=== PATIENT | female | born 1995 | race Caucasian/White ===

== ENCOUNTER 2017-03-25 22:15 | Emergency (ER) | payer OTHER ==
[2017-03-25 23:52] LABS: KETONE, URINE AUTO RFX NEGATIVE (NEGATIVE); LEUKOCYTE ESTERASE UR AUTO RFX NEGATIVE (NEGATIVE); MUCUS, URINE RFX SMALL (NEGATIVE); NITRITE, URINE AUTO RFX NEGATIVE (NEGATIVE); RBC, URINE AUTO RFX 2 /HPF (0-3); SPECIFIC GRAVITY UR AUTO RFX 1.023 (1.002-1.035); SQUAM EPITHELIAL CELL UR AURFX 1 /HPF (0-6); WBC, URINE AUTO RFX 1 /HPF (0-3)
[2017-03-26] MEDS: NORCO 5/325MG TABLET (BULK FOR ED) PO (03:00)
== END 2017-03-26 03:09 | disposition home or self-care (01) ==
LOC: M ED 03-26 03:09
DX: N83.202 Unspecified ovarian cyst, left side (principal); Z88.8 Allergy status to other drugs, medicaments and biological substances
CPT/HCPCS: 76856

== ENCOUNTER → 2019-09-22 | Outpatient (CLI) | payer OTHER ==
--- NOTE | 2019-11-02 10:11 | REP ---
ULTRASOUND RIGHT BREAST HISTORY: Two palpable lumps axillary tail. TECHNIQUE: Real-time sonographic evaluation of right axillary tail region performed at the site of two palpable lumps. FINDINGS: At each of those locations a normal appearing lymph node is visualized. Short axis dimension of each lymph node is less than 1 cm with normal appearing echogenic fatty hilum. The short axis of each lymph node is 8-9 mm. No other cystic or solid mass is seen. IMPRESSION: ACR2 benign. At the site of each palpable abnormality in the region of the right axillary tail is a normal appearing lymph node with short axis dimensions 8 and 9 mm. MTDD
== END ==
LOC: M RAD 09:50
PROVIDERS: ATTEND Family Medicine
DX: N63.10 Unspecified lump in the right breast, unspecified quadrant (principal); R59.1 Generalized enlarged lymph nodes

== ENCOUNTER 2020-02-06 15:01 | Emergency (ER) | payer OTHER ==
[~2020-02-06] VITALS: Ht 167.6 cm; Wt 98.5 kg
[2020-02-06 16:09] LABS: BASO % 0.7 % (0.0-1.0); HEMATOCRIT 45.5 % (36.0-47.0); HEMOGLOBIN 14.5 g/dl (12.0-15.5); LYMPH # 0.7 10^3/uL (1.5-5.0); LYMPH % 16.2 % (24.0-44.0); MEAN CORPUSCULAR HEMOGLOBIN 27.9 pg (27.0-33.0); MEAN CORPUSCULAR HGB CONC 31.9 g/dl (32.0-36.5); MEAN CORPUSCULAR VOLUME 87.7 fl (80.0-96.0); MONO # 0.3 10^3/uL (0.0-0.8); MONO % 6.7 % (0.0-5.0); NEUTROPHILS # 3.1 10^3/uL (1.5-8.5); NEUTROPHILS % 74.9 % (36.0-66.0); PLATELET COUNT, AUTOMATED 177 10^3/uL (150-450); RED BLOOD COUNT 5.19 10^6/uL (4.00-5.40); WHITE BLOOD COUNT 4.2 10^3/uL (4.0-10.0)
[2020-02-06] MEDS ORDERED: ONDANSETRON 4MG/2ML VIAL IV ONE (16:30)
[2020-02-06] MEDS ORDERED: ACETAMINOPHEN 500 MG TAB PO ONE (16:30)
[2020-02-06] MEDS ORDERED: NS 1,000 ML IV ONE (16:30)
[2020-02-06 16:33] LABS: ALBUMIN 3.8 GM/DL (3.2-5.2); ALT/SGPT 37 U/L (12-78); BILIRUBIN,DIRECT 0.1 MG/DL (0.0-0.2); BILIRUBIN,TOTAL 0.2 MG/DL (0.2-1.0); BLOOD UREA NITROGEN 9 MG/DL (7-18); CALCIUM LEVEL 9.2 MG/DL (8.5-10.1); CARBON DIOXIDE LEVEL 27 MEQ/L (21-32); CHLORIDE LEVEL 102 MEQ/L (98-107); CREATININE FOR GFR 0.85 MG/DL (0.55-1.30); GLOMERULAR FILTRATION RATE > 60.0 (>60); GLUCOSE, FASTING 106 MG/DL (70-100); LIPASE 62 U/L (73-393); POTASSIUM SERUM 3.9 MEQ/L (3.5-5.1); SODIUM LEVEL 135 MEQ/L (136-145); TOTAL PROTEIN 8.1 GM/DL (6.4-8.2)
[2020-02-06 16:43] LABS: HCG, SERUM QUALITATIVE NEGATIVE (NEGATIVE)
[2020-02-06 17:28] LABS: RSV AMPLIFICATION NEGATIVE (NEGATIVE)
[2020-02-06] MEDS ORDERED: IBUPROFEN 800 MG TAB PO ONE (18:15)
--- NOTE | 2020-02-06 21:17 | REPVR ---
PROCEDURE INFORMATION: Exam: MR Lumbar Spine Without Contrast. Exam date and time: 02/06/2020 8:37 PM Age: 24 years old Clinical indication: Low back pain; Additional info: Fever uko, low back pain, PT refuses contrast TECHNIQUE: Imaging protocol: Multiplanar magnetic resonance images of the lumbar spine without intravenous contrast. COMPARISON: No relevant prior studies available. FINDINGS: Vertebral body heights are maintained. No abnormal marrow signal. No cord compression. No abnormal cord signal. Conus medullaris terminates at the L1 level. No significant areas of canal or foraminal narrowing. Disc space heights are preserved. Paravertebral soft tissues are unremarkable. L1-L2: No significant canal or foraminal narrowing. L2-L3: No significant canal or foraminal narrowing. L3-L4: No significant canal or foraminal narrowing. L4-L5: Minimal posterior central disc protrusion without significant canal or foraminal narrowing. L5-S1: No significant canal or foraminal narrowing. IMPRESSION: No acute findings in the lumbar spine. Electronically signed by: Madhu Elizabeth On 02/06/2020 21:17:21 PM
[2020-02-06] MEDS ORDERED: ONDA4TAB6 PO (21:35)
[2020-02-06 21:51] VITALS: BP 133/82
== END 2020-02-06 21:52 | disposition home or self-care (01) ==
LOC: M ED 15:01
DX: R50.9 Fever, unspecified (principal); R11.0 Nausea; M54.5 Low back pain; I10 Essential (primary) hypertension; Z88.8 Allergy status to other drugs, medicaments and biological substances

== ENCOUNTER → 2020-05-25 | Outpatient (CLI) | payer OTHER ==
[~2020-05-25] MED LIST: ONDA4TAB6 PO
--- NOTE | 2020-05-26 23:27 | ECWPNPC ---
PATIENT NAME: PÉREZ VALIENTE : 1995 GENDER: FEMALE VISIT DATE: 05/25/2020 DISCHARGE DATE: 05/25/20 1411 VISIT LOCKED DATE TIME: PHYSICIAN: GAMAL ARREOLA RESOURCE: GAMAL ARREOLA REASON FOR APPOINTMENT 1. LOW BACK HISTORY OF PRESENT ILLNESS DEPRESSION SCREENING: PHQ-2 (2015 EDITION) LITTLE INTEREST OR PLEASURE IN DOING THINGS?NOT AT ALL FEELING DOWN, DEPRESSED, OR HOPELESS?NOT AT ALL TOTAL SCORE0 PAIN CENTER INTAKE QUESTIONS: DO YOU HAVE A HISTORY OF MRSA? :NO DO YOU TAKE A BLOOD THINNERS? :NO DO YOU HAVE ANY BLEEDING DISORDERS? :NO ANY NEW NUMBNESS OR WEAKNESS IN YOUR LEGS OR ARMS? :YES NUMBNESS AND WEAKNESS BILATERAL LEGS AND ARMS ANY PACEMAKER,DEFIBRILLATOR, OR DORSAL COLUMN STIMULATOR? :NO DO YOU HAVE ANY RASHES OR OPEN SORES? :NO ARE YOU ALLERGIC TO IV DYE? :NO ARE YOU DIABETIC? :NO ANY NEW PROBLEMS WITH YOUR MEDICATIONS? :NO HAVE YOU RECEIVED A VACCINE IN THE PAST 30 DAYS? :NO DO YOU PLAN TO RECEIVE A VACCINE IN THE NEXT 21 DAYS? :NO DO YOU NEED ANY PRESCRIPTION? :NO DO YOU TAKE ANY IMMUNOSUPPRESSIVE MEDICATIONS? :NO DO YOU HAVE ANY KIDNEY OR LIVER DISEASE? :NO IS THERE A CHANCE YOU COULD BE ? :NO TRYING TO CONCEIVE. NOT OF 05/25/2020 ARE YOU BREAST FEEDING? :NO GENERAL: 24-YEAR-OLD FEMALE BEING REFERRED BY ALIYAH NEWELL TO EVALUATE CHRONIC LOW BACK PAIN. THIS BEGAN SEVERAL YEARS AGO WITHOUT PRECIPITATING EVENT. PAIN IS WORSE ON THE RIGHT COMPARED TO LEFT. STATES SHE HAS INTERMITTENT LEG SYMPTOMS OF NUMBNESS AND TINGLING. REVIEWED MRI OF THE LUMBOSACRAL SPINE. DISCUSSED TREATMENT OPTIONS TO INCLUDE MEDICATION AND INJECTIONS. PATIENT IS TRYING TO GET . SHE IS NOT INTERESTED IN DOING ANY TREATMENT AT THIS POINT IN TIME. - -. FALL RISK SCREENING: SCREENING : NO FALLS REPORTED IN THE LAST YEAR. PAIN SCREENING: PATIENT HAS A COMPLAINT OF ACUTE OR CHRONIC PAIN :YES LOCATION OF PAIN:LOW BACK INTENSITY OF PAIN (SCALE OF 1 TO 10):3 WHAT DOES YOUR PAIN FEEL LIKE:ACHING, SHARP, OTHER TINGLING, HOT, NUMB AT TIMES, PULLING DURATION:CONTINOUS, CONSTANT, AWAKENS FROM SLEEP PAIN IS INCREASED BY:ACTIVITIES, PROLONGED STANDING, OTHERS BENDING PAIN IS DECREASED BY:USE OF PAIN MEDICATIONS, SITTING, OTHERS HEAT, STRETCHING, NSAIDS, IBUPROFEN NURSING NOTE: - -. CURRENT MEDICATIONS TAKING CETIRIZINE HCL 10 MG TABLET 1 TABLET ORALLY ONCE A DAY NOT-TAKING HYDROXYZINE HCL 10 MG TABLET DIRECTED ORALLY NOT-TAKING FLUCONAZOLE 150 MG TABLET 1 TABLET ORALLY NOT-TAKING NITROFURANTOIN MACROCRYSTAL 100 MG CAPSULE 1 CAPSULE AT BEDTIME WITH FOOD OR MILK ORALLY ONCE A DAY NOT-TAKING CLOBETASOL PROPIONATE 0.05 % OINTMENT 1 APPLICATION EXTERNALLY TWICE A DAY NOT-TAKING ONDANSETRON HCL 4 MG TABLET 1 TABLET ORALLY ONCE A DAY NOT-TAKING AMMONIUM LACTATE 12 % CREAM 1 APPLICATION EXTERNALLY TWICE A DAY NOT-TAKING CEFDINIR 300 MG CAPSULE DIRECTED ORALLY NOT-TAKING DICLOFENAC SODIUM 1 % GEL DIRECTED EXTERNALLY NOT-TAKING CETIRIZINE HCL 10 MG TABLET 1 TABLET ORALLY ONCE A DAY NOT-TAKING FLUTICASONE PROPIONATE 50 MCG/ACT SUSPENSION 1 SPRAY IN EACH NOSTRIL NASALLY ONCE A DAY NOT-TAKING PREDNISONE 10 MG TABLET 1 TABLET ORALLY ONCE A DAY NOT-TAKING DULOXETINE HCL 20 MG CAPSULE DELAYED RELEASE PARTICLES 1 CAPSULE ORALLY TWICE A DAY NOT-TAKING CLOBETASOL 17 PROPIONATE 0.5 % POWDER DIRECTED NOT-TAKING CLARITIN NOT-TAKING SAMSON NOT-TAKING SUDAFED 12 HOUR 120 MG TABLET EXTENDED RELEASE 12 HOUR 1 TABLET NEEDED ORALLY DAILY NOT-TAKING FLONASE 50 MCG/ACT SUSPENSION 1 SPRAY IN EACH NOSTRIL NASALLY BID MEDICATION LIST REVIEWED AND RECONCILED WITH THE PATIENT PAST MEDICAL HISTORY LOW BACK PAIN PCOS RIGHT OVARY HYPERTENSION ANXIETY ALLERGIES PROMETHAZINE HCL: CONFUSION - ALLERGY BENADRYL: HYPERACTIVITY - SIDE EFFECTS MACROBID: RASH - ALLERGY SOCIAL HISTORY GENERAL: TOBACCO USE ARE YOU A:NONSMOKER LATEX QUESTIONNAIRE LATEX ALLERGY : HAVE YOU EVER DEVELOPED ANY TYPE OF REACTION AFTER HANDLING LATEX PRODUCTS SUCH RUBBER GLOVES, CONDOMS, DIAPHRAGMS, BALLOONS, SOCKS, OR UNDERWEAR?NO LATEX ALLERGY : HAVE YOU EVER DEVELOPED ANY TYPE OF REACTION DURING OR AFTER DENTAL APPOINTMENT, VAGINAL/RECTAL EXAMINATION, SURGICAL PROCEDURE, OR ANY OTHER EXPOSURE?NO LATEX RISK : HAVE YOU EVER HAD ANY DIFFICULTY BREATHING OR HIVES AFTER EATING OR HANDLING ANY FRUITS, OR VEGETABLES; SUCH KIWI, BANANAS, STONE FRUITS, OR CHESTNUTSNO LATEX RISK : DO YOU HAVE A PREVIOUS PERSONAL HISTORY OF MORE THAN NINE SURGERIES, SPINA BIFIDA, OR REPEATED CATHERIZATIONS? NO LATEX RISK : ARE YOU FREQUENTLY EXPOSED TO LATEX PRODUCTS IN YOUR OCCUPATION?NO DATE ASKED : 05/25/2020 ALCOHOL USE: NO. RECREATIONAL DRUG USE DRUG USE?NO LANGUAGE LANGUAGES SPOKEN:J[place]ANESE EDUCATION LEVEL OF EDUCATION:COLLEGE LEARNING BARRIERS / SPECIAL NEEDS BARRIERS TO LEARNING?NO HEARING IMPAIRED?NO VISION IMPAIRED?YES :CORRECTIVE LENSES COGNITIVELY IMPAIRED?NO READINESS TO LEARN?YES LEARNING PREFERENCES?NO LEARNING CAPABILITIES PRESENT?YES EMOTIONAL BARRIERS?NO SPECIAL DEVICES?NO METAL COATER NEEDED?NO REVIEW OF SYSTEMS CONSTITUTIONAL: ANY RECENT FEVER NO . CHILLS NO . WEIGHT CHANGE OF UNKNOWN REASONS NO . GASTROENTEROLOGY: NEW UNEXPLAINABLE CHANGES IN BOWEL CONTROL NO . CONSTIPATION NO . GENITOURINARY: ANY NEW CHANGE IN BLADDER CONTROL? NO . NEUROLOGY: NEW ONSET DIZZINESS OR NEUROLOGICAL CHANGES NOT MENTIONED NO . NEW NUMBNESS OR PAIN PATTERNS NOT MENTIONED AND PERTINENT TO TODAY'S VISIT NO . CARDIOLOGY: NEW CHEST PRESSURE NO . PATIENT DENIES NO . RESPIRATORY: UNEXPLAINABLE COUGH NO . NEW SHORTNESS OF BREATH NO . VITAL SIGNS WT 220.8 LBS, HT 66 IN, BMI 35.63 INDEX, BP 146/85 MM HG, HR 109 /MIN, RR 18 /MIN, TEMP 98.3 F, OXYGEN SAT % 100%, SAFE IN ENV? (Y/N) YES, REVIEWED BY: ALYSSA CESPEDES MA. EXAMINATION GENERAL EXAMINATION: GENERALNO ACUTE DISTRESS, WELL NOURISHED AND HYDRATED. PSYCHAPPROPRIATE MOOD AND AFFECT . NECK:NO LYMPHADENOPATHY, SUPPLE. LUNGS:CLEAR TO AUSCULTATION BILATERALLY, NO WHEEZES, RHONCHI, RALES. HEART:NO MURMURS, REGULAR RATE AND RHYTHM. MUSCULOSKELETAL: MUSCLE STRENGTH TESTING 5/5 BILATERAL UPPER/LOWER EXTREMITIES. LUMBAR:TENDER OVER L/S SPINE AND PARASPINALS. SPECIFIC POINT TENDERNESS OVER BILATERAL SIJ LEFT GREATER THAN RIGHT. . DIAGNOSTIC TESTS REVIEWED MRI L/S SPINE-2020. ASSESSMENTS BILATERAL SACROILIITIS - M46.1 (PRIMARY) TREATMENT BILATERAL SACROILIITIS NOTES: DISCUSSED TREATMENT OPTIONS TO INCLUDE SACROILIAC JOINT BLOCK AND LUMBAR EPIDURAL STEROID INJECTION. DISCUSSED PHYSICAL THERAPY. PATIENT STATES SHE IS ATTENDING PHYSICAL THERAPY AND SOMETIMES THIS MAKES PAIN WORSE. SHE WILL CONSIDER STEROID INJECTION THERAPY AND WILL CALL US BACK TO MAKE A FOLLOW-UP APPOINTMENT IF NEEDED. PROCEDURE CODES FA211 ESTABILISHED PATIENT [facility] CHARGE DISPOSITION & COMMUNICATION FOLLOW UP PATIENT WILL CALL FOR FOLLOW-UP (REASON: LOW BACK PAIN) ELECTRONICALLY SIGNED BY AUNDREA BOSTON ON 05/26/2020 AT 01:15 PM EDT DISCLAIMER : THIS IS A VISIT SUMMARY EXTRACTED FROM THE [facility] [employer] CHART. IT IS NOT A COPY OF THE [facility] [employer] PROGRESS NOTE. GLORIA
== END ==
LOC: M PAIN 13:00
PROVIDERS: ATTEND Nurse Practitioner Family
DX: M46.1 Sacroiliitis, not elsewhere classified (principal); G89.29 Other chronic pain; Z86.59 Personal history of other mental and behavioral disorders; Z88.1 Allergy status to other antibiotic agents; Z88.8 Allergy status to other drugs, medicaments and biological substances; Z79.899 Other long term (current) drug therapy